=== PATIENT | female | born 1950 | race Caucasian/White ===

== ENCOUNTER 2021-10-29 09:39 | Inpatient (IN) | payer OTHER ==
[~2021-10-29] VITALS: Ht 157.5 cm; Wt 80.0 kg
[2021-10-29 10:59] LABS: BASOPHIL 0.3 % (0-2); EOSINOPHIL 0 % (0-7); HCT 41.8 % (37.0-47.0); HGB 14.2 g/dl (12.5-16.0); LYMPHOCYTE 1.7 % (15-48); MCH 28.3 pg (25.0-31.0); MCV 83.4 fL (78.0-100.0); MONOCYTE 8.8 % (0-12); MPV 9.7 fL (6.0-9.5); NEUTROPHIL 83.8 % (41-80); NRBC 0; PLT 212 K/uL (150-400); RBC 5.01 M/uL (4.20-5.40); RDW 13.3 % (11.5-14.0)
[2021-10-29 11:00] LABS: WBC 22.3 K/uL (4.0-10.5)
[2021-10-29 11:13] LABS: PTT 23.5 SECONDS (24.4-34.7)
[2021-10-29 11:14] LABS: INR 1.14 (0.9-1.2)
[2021-10-29 11:15] LABS: D-DIMER 0.79 ug/mLFEU (0.00-0.41)
[2021-10-29 11:39] LABS: ALBUMIN 2.5 g/dL (3.4-5.0); BILIRUBIN - TOTAL 0.3 mg/dL (0.2-1.0); BUN/CREAT RATIO (CALC) 31.9 RATIO; C-REACTIVE PROTEIN 3.5 mg/dL (<=0.90); CREATININE 0.69 mg/dL (0.51-0.95); GLOBULIN (CALCULATION) 3.6 g/dL; POTASSIUM 4.1 mmol/L (3.5-5.1); TOTAL PROTEIN 6.1 g/dL (6.4-8.2)
[2021-10-29 12:56] LABS: INFLUENZA A NAA NEGATIVE (NEGATIVE)
[2021-10-29 13:02] LABS: CORONAVIRUS 2019 SARS-COV-2 POSITIVE (NEGATIVE)
[2021-10-29 13:31] LABS: BASOPHIL 0.3 % (0-2); EOSINOPHIL 0 % (0-7); HCT 39.2 % (37.0-47.0); HGB 13.5 g/dl (12.5-16.0); LYMPHOCYTE 2.1 % (15-48); MCH 28.6 pg (25.0-31.0); MCHC 34.4 g/dL (32.0-36.0); MCV 83.1 fL (78.0-100.0); MONOCYTE 8.4 % (0-12); MPV 9.8 fL (6.0-9.5); NRBC 0; PLT 184 K/uL (150-400); RBC 4.72 M/uL (4.20-5.40); RDW 13.2 % (11.5-14.0); WBC 19.9 K/uL (4.0-10.5)
[2021-10-29 13:35] LABS: TOTAL CELL COUNT 100
[2021-10-29 13:43] LABS: BAND 1 % (0-10); LYMPHOCYTE(M) 2 % (15-48); MONOCYTE(M) 8 % (0-12); NEUTROPHILS(M) 88 % (41-80); VARIANT LYMPHOCYTE 1
[2021-10-29 13:44] LABS: PLATELET ESTIMATE NORMAL; PLATELET MORPHOLOGY NORMAL
[2021-10-29 14:00] LABS: LACTIC ACID 2.6 mmol/L (0.4-1.9)
[2021-10-29] MEDS ORDERED: COLACE100 MG PO (17:54)
[2021-10-29] MEDS ORDERED: COZAAR50 MG PO (17:54)
[2021-10-29] MEDS ORDERED: ANASTROZOLE1 MG PO (17:55)
[2021-10-29] MEDS ORDERED: ZOLOFT100 MG PO (17:55)
[2021-10-29] MEDS ORDERED: LUNESTA2 MG PO (17:57)
[2021-10-29] MEDS ORDERED: NORVASC2.5 MG PO (17:58)
[2021-10-29] MEDS ORDERED: MIRAPEX0.25 MG PO (17:59)
[2021-10-29] MEDS ORDERED: OS-CAL500 MG PO (18:00)
[2021-10-29] MEDS ORDERED: MAGNESIUM OXID400 M1 PO (18:01)
[2021-10-29] MEDS ORDERED: COMPAZINE10 MG PO (18:02)
[2021-10-29] MEDS ORDERED: TESSALON PERLE100 MG PO (18:03)
[2021-10-29] MEDS ORDERED: PROAIR DIGIHAL90 MCG INH (18:04)
[2021-10-29] MEDS ORDERED: HYDROCODON-ACE1 EAC2 PO (18:05)
[2021-10-29] MEDS ORDERED: DEXAMETHASONE 2M2 MG PO (18:08)
[2021-10-30 09:10] LABS: BASOPHIL 0.4 % (0-2); EOSINOPHIL 0 % (0-7); HCT 40.8 % (37.0-47.0); HGB 13.8 g/dl (12.5-16.0); LYMPHOCYTE 3.5 % (15-48); MCH 28.3 pg (25.0-31.0); MCHC 33.8 g/dL (32.0-36.0); MCV 83.8 fL (78.0-100.0); MONOCYTE 6.3 % (0-12); MPV 9.8 fL (6.0-9.5); NEUTROPHIL 80.8 % (41-80); NRBC 0; PLT 177 K/uL (150-400); RBC 4.87 M/uL (4.20-5.40); RDW 13.4 % (11.5-14.0); WBC 13.9 K/uL (4.0-10.5)
[2021-10-30 09:43] LABS: ALBUMIN 2.4 g/dL (3.4-5.0); BILIRUBIN - TOTAL 0.3 mg/dL (0.2-1.0); BUN/CREAT RATIO (CALC) 34.3 RATIO; C-REACTIVE PROTEIN 4.7 mg/dL (<=0.90); CREATININE 0.67 mg/dL (0.51-0.95); GLOBULIN (CALCULATION) 3.7 g/dL; POTASSIUM 4.2 mmol/L (3.5-5.1); TOTAL PROTEIN 6.1 g/dL (6.4-8.2)
[2021-11-01 06:01] LABS: BASOPHIL 0.5 % (0-2); EOSINOPHIL 0.5 % (0-7); HCT 40.7 % (37.0-47.0); HGB 13.8 g/dl (12.5-16.0); LYMPHOCYTE 5.7 % (15-48); MCH 28.5 pg (25.0-31.0); MCHC 33.9 g/dL (32.0-36.0); MCV 84.1 fL (78.0-100.0); MONOCYTE 7.3 % (0-12); MPV 9.6 fL (6.0-9.5); NEUTROPHIL 77.9 % (41-80); NRBC 0; PLT 158 K/uL (150-400); RBC 4.84 M/uL (4.20-5.40); RDW 13.4 % (11.5-14.0); WBC 15.3 K/uL (4.0-10.5)
[2021-11-01 06:32] LABS: BUN/CREAT RATIO (CALC) 30.7 RATIO; CREATININE 0.75 mg/dL (0.51-0.95); POTASSIUM 4.7 mmol/L (3.5-5.1)
[2021-11-01] MEDS ORDERED: DEXAMETHASONE 2M2 MG PO (11:55)
== END 2021-11-01 13:12 | disposition home or self-care (01) | DRG 177 ==
LOC: FER 09:39 → FMS 13:47
PROVIDERS: Emergency Medicine; Internal Medicine; ADMIT Internal Medicine
PROC: XW033E5 Introduction of Remdesivir Anti-infective into Peripheral Vein, Percutaneous Approach, New Technology Group 5 (ICD-10-PCS; principal; 2021-10-29)
DX: U07.1 COVID-19 (principal); J12.82 Pneumonia due to coronavirus disease 2019; J96.01 Acute respiratory failure with hypoxia; C82.30 Follicular lymphoma grade IIIa, unspecified site; C50.911 Malignant neoplasm of unspecified site of right female breast; I10 Essential (primary) hypertension; F32.A Depression, unspecified; Z99.81 Dependence on supplemental oxygen; Z88.2 Allergy status to sulfonamides; Z90.49 Acquired absence of other specified parts of digestive tract; Z79.899 Other long term (current) drug therapy; Z92.3 Personal history of irradiation; Z90.710 Acquired absence of both cervix and uterus; Z98.890 Other specified postprocedural states
CPT/HCPCS: 36415; 36600; 71045; 71275; 80048; 80053; 82728; 82803; 83605; 83615; 83880; 84145; 84484; 85025; 85379; 85610; 85730; 86140; 87040; 93005; 94640; C9399; J1100; J1650; J7050; Q9967; U0002